=== PATIENT | female | born 1980 | race African-American/Black ===

== ENCOUNTER 2018-01-15 10:09 | Inpatient (IN) | payer OTHER ==
[~2018-01-15] VITALS: Ht 160 cm; Wt 73.7 kg
[2018-01-15 13:06] LABS: POTASSIUM 3.6 mmol/L (3.6-5.2); SODIUM 136 mmol/L (136-145)
[2018-01-15 13:08] LABS: PLATELET COUNT 284 K/uL (152-353)
[2018-01-15 15:46] VITALS: BP 116/64; TEMP 99.3; Ht 160 cm; Wt 73.7 kg
[2018-01-15] MEDS ORDERED: IBUPROFEN200 M1 PO (17:12)
[2018-01-15] MEDS ORDERED: CELEXA20 MG PO (17:13)
[2018-01-15] MEDS ORDERED: DIETHYLPROPION PO (17:14)
[2018-01-15 20:23] VITALS: BP 113/64; TEMP 98.3
[2018-01-16 00:16] VITALS: BP 102/52; TEMP 97.6
[2018-01-16 04:07] VITALS: BP 112/64; TEMP 97.9
[2018-01-16 06:06] LABS: PLATELET COUNT 291 K/uL (152-353)
[2018-01-16 06:37] LABS: POTASSIUM 3.9 mmol/L (3.6-5.2)
[2018-01-16 08:00] VITALS: BP 104/56; TEMP 98.4
[2018-01-16 12:00] VITALS: BP 116/52; TEMP 98.6
[2018-01-16 16:00] VITALS: BP 110/55; TEMP 98.6
[2018-01-16 20:03] VITALS: BP 115/50; TEMP 98.8
[2018-01-17 00:01] VITALS: BP 119/52; TEMP 98.4
[2018-01-17 04:05] VITALS: BP 122/57; TEMP 98.5
[2018-01-17 05:29] LABS: PLATELET COUNT 291 K/uL (152-353)
[2018-01-17 08:00] VITALS: BP 120/62; TEMP 98.8
[2018-01-17 12:00] VITALS: BP 129/61; TEMP 98.9
[2018-01-17 16:00] VITALS: BP 133/60; TEMP 98.6
[2018-01-17 19:56] VITALS: BP 155/62; TEMP 98.8
[2018-01-18] VITALS: BP 157/71; TEMP 98.4
[2018-01-18 04:00] VITALS: BP 152/71; TEMP 97.9
[2018-01-18 05:50] LABS: PLATELET COUNT 295 K/uL (152-353)
[2018-01-18 06:09] LABS: POTASSIUM 3.6 mmol/L (3.6-5.2)
[2018-01-18 08:04] VITALS: BP 141/63; TEMP 98.5
[2018-01-18 12:00] VITALS: BP 113/50; TEMP 99.1
--- NOTE | 2018-01-18 15:25 | NUR ---
IV RESTARTED X 3 ATEMPTS. 22G RFA NAD NOTED
[2018-01-18 16:00] VITALS: BP 150/79; TEMP 98.7
[2018-01-18 20:00] VITALS: BP 118/63; TEMP 98.6
[2018-01-19] VITALS: BP 117/64; TEMP 98.4
[2018-01-19 04:00] VITALS: BP 120/63; TEMP 98.8
[2018-01-19 07:05] LABS: PLATELET COUNT 279 K/uL (152-353)
[2018-01-19 07:20] LABS: POTASSIUM 3.2 mmol/L (3.6-5.2)
[2018-01-19 08:05] VITALS: BP 127/67; TEMP 98.7
[2018-01-19 12:00] VITALS: BP 117/74; TEMP 98.6
[2018-01-19 16:00] VITALS: BP 117/74; TEMP 98.4
[2018-01-19 20:00] VITALS: BP 129/78; TEMP 98.6
--- NOTE | 2018-01-19 20:40 | NUR ---
MOTRIN PO GIVEN FOR C/O OF NECK PAIN.
[2018-01-20] VITALS (7 sets, daily range): BP systolic 103–138; BP diastolic 54–78; TEMP 98.1–98.8
--- NOTE | 2018-01-20 05:15 | NUR ---
AT 01/19/18 AT 2200PM. PT WAS GIVEN AMBIEN FOR REST.
[2018-01-20 05:43] LABS: PLATELET COUNT 308 K/uL (152-353)
[2018-01-20 06:06] LABS: POTASSIUM 4.3 mmol/L (3.6-5.2)
[2018-01-21 04:00] VITALS: BP 116/65; TEMP 98.3
[2018-01-21 06:20] LABS: PLATELET COUNT 338 K/uL (152-353)
[2018-01-21 06:35] LABS: POTASSIUM 4.6 mmol/L (3.6-5.2)
[2018-01-21 08:00] VITALS: BP 110/60; TEMP 97.7
--- NOTE | 2018-01-21 09:00 | NUR ---
NURSE PRACTITIONER, GERMÁN IN ROOM AT THIS TIME. SERVICE CREW SUPERVISOR WANTS PT TO F/U WITH [facility]
[2018-01-21 12:00] VITALS: BP 123/64; TEMP 98.1
--- NOTE | 2018-01-21 13:17 | NUR ---
IV D/C TIP INTACT, PT D/C VIA AMBULATORY. PT INSTRUCTED TO F/U WITH PCP AND F/U WITH [facility]. [facility] CALLED AND STATED THEY WOULD CALL PT WITH F/U APPOINTMENT
== END 2018-01-21 13:15 | disposition home or self-care (01) | DRG 194 ==
LOC: ED 10:09 → MED/SURG 12:15
PROVIDERS: Family Medicine
DX: J18.8 Other pneumonia, unspecified organism (principal); N39.0 Urinary tract infection, site not specified; B96.1 Klebsiella pneumoniae [K. pneumoniae] as the cause of diseases classified elsewhere; E11.9 Type 2 diabetes mellitus without complications; R30.0 Dysuria; E87.6 Hypokalemia; M54.2 Cervicalgia
CPT/HCPCS: 36415; 80048; 80053; 81000; 81025; 82550; 84484; 85027; 87040; 87077; 87081; 87086; 87088; 87186; 87804; 87880; 93005; 94640; 94664; 94760; 96365; 96372; 99284; J0456; J0696; J1815; J1885; J1956; J2920; J7120; Q9963